=== PATIENT | male | born 1970 | race Caucasian/White ===

== ENCOUNTER 2019-02-14 14:21 | Outpatient (RCR) | payer OTHER | END 2019-05-15 | disposition home or self-care (01) | LOC: WSOH | DX: S40.011A Contusion of right shoulder, initial encounter (principal); M25.511 Pain in right shoulder; W01.198A Fall on same level from slipping, tripping and stumbling with subsequent striking against other object, initial encounter; Y92.89 Other specified places as the place of occurrence of the external cause; Y99.0 Civilian activity done for income or pay; E11.9 Type 2 diabetes mellitus without complications; Z79.84 Long term (current) use of oral hypoglycemic drugs; E78.00 Pure hypercholesterolemia, unspecified; Z79.899 Other long term (current) drug therapy ==

== ENCOUNTER 2019-06-11 13:13 | Outpatient (RCR) | payer OTHER | END 2019-07-12 10:24 | disposition still patient (30) | LOC: WSOH 13:13 | DX: S40.011A Contusion of right shoulder, initial encounter (principal) ==